=== PATIENT | female | born 1950 | race Caucasian/White ===

== ENCOUNTER 2018-03-31 07:12 | Inpatient (IN) | payer BC, OTHER ==
[~2018-03-31] VITALS: Ht 165.1 cm; Wt 74.1 kg
[2018-03-31] VITALS (9 sets, daily range): BP systolic 118–169; BP diastolic 58–68; PULSE 52–71; RESP 16; Ht 165.1 cm; Wt 74.1 kg
[2018-03-31] MEDS ORDERED: SOD CHLORIDE 0.9% 100 ML ONE (08:39)
[2018-03-31] MEDS ORDERED: IOHEXOL 100 ML ONE (08:39)
--- NOTE | 2018-03-31 08:51 | NUR ---
Procedure Ordered:CTA HEAD/NECK Reason for Exam Today:RT SIDE WEAKNESS Previous Exams: Allergies:NKDA Current Medications Taken: Glucophage ( ) Metformin ( ) Previous reaction to contrast media: Yes ( ) No (X ) : Yes ( ) No (X ) Asthma: Yes ( ) No ( X) Diabetes: Yes ( ) No ( X) Myeloma: Yes ( ) No (X ) Heart Disease: Yes ( ) No (X ) Cardiac Disease: Yes ( ) No ( X) Kidney Disease: Yes ( ) No ( X) Vascular Disease: Yes ( ) No (X ) Patient Teaching done: Yes ( ) No ( ) Admissions Supervisor Used: Yes ( ) No ( ) Name of Admissions Supervisor: Language Used: As part of the test requested by your doctor, contrast media may be injected into your vein while the x-rays are being taken. Occasionally, reactions from IV contrast may occur. The physician and staff of this hospital are trained to treat these reactions. Select the type of Contrast that will be given to patient: Isovue 300 ( ) Isovue 370 ( ) Visipaque ( ) Cystografin ( ) OMNIPAQUE 350 (x) Gastrographin ( ) Redi-cat ( ) Volumen ( ) Amount of contrast to be given: 90CC IV (X ) PO ( ) Date given:03/31/18 Lab Values: BUN: Creatinine:0.76 21 Reason why contrast cannot be given: Location of patient pre-procedure:[facility] Location of patient post procedure:[facility] PT TOLERATED IV CONTRAST INJECTION WELL
[2018-03-31] MEDS ORDERED: ACETAMINOPHEN 325 MG TAB PO PRN (09:00)
[2018-03-31] MEDS ORDERED: ASPIRIN 325 MG TAB PO ONE (09:00)
[2018-03-31] MEDS ORDERED: ONDANSETRON 4 MG INJ IV PRN ×2 (09:00→11:30)
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
[2018-03-31] MEDS ORDERED: PANT40TA4 PO (09:36)
[2018-03-31] MEDS ORDERED: HYDR25TA6 PO (09:37)
[2018-03-31] MEDS ORDERED: LOVA-54 PO (09:37)
[2018-03-31] MEDS ORDERED: AMLO5TAB4 PO (09:38)
[2018-03-31] MEDS ORDERED: CITA20TA8 PO (09:38)
[2018-03-31] MEDS ORDERED: CLON0.5T14 PO (09:39)
[2018-03-31] MEDS ORDERED: DOXY50TA PO (09:39)
[2018-03-31] MEDS ORDERED: HYDR-3980 PO (09:40)
[2018-03-31] MEDS ORDERED: clonAZEPAM 0.5 MG TAB PO PRN (11:00)
[2018-03-31] MEDS: ASPIRIN 81 MG TAB PO SCH (11:30)
[2018-03-31] MEDS ORDERED: NACL 0.9% 3 ML SYG IV SCH (11:30)
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
[2018-03-31] MEDS: HYDROCODONE/APAP (10/325) TAB PO PRN (14:51)
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
[2018-03-31] MEDS ORDERED: LORAZEPAM 1 MG TAB PO PRN (16:30)
--- NOTE | 2018-03-31 19:45 | NUR ---
EOSS: Pt arrived on unit around 1500, [id number] with mild forgetfulness, calm and cooperative, pain complaint of chronic head and neck ache /. Admission complete, pt refused pictures, skin intact. Pt seen by Pt and OT, pt passed john paul swallow with staff counselor. No neuro residuals observed and a NIHSS of 0. Pt pending EEG and MRI brain. VSS All other needs met and questions answered.
[2018-03-31] MEDS ORDERED: NON-FORMULARY/PATIENT OWN MED (Lovastatin* (Altoprev*) 40 MG) PO SCH (21:00)
[2018-03-31] MEDS ORDERED: LORAZEPAM 2 MG INJ IV ONE (22:00)
[2018-03-31] MEDS: DOXYCYCLINE 100 MG TAB PO SCH (22:43)
[2018-03-31] MEDS: ATORVASTATIN 10 MG TAB PO SCH (22:43)
[2018-04-01] VITALS (10 sets, daily range): BP systolic 106–145; BP diastolic 55–65; PULSE 55–120; RESP 16–18
--- NOTE | 2018-04-01 06:15 | EEG ---
EEG NOTE Report Details DATE OF TEST: 03/31/18 HISTORY: The patient is a 68-year-old F who presents with episodic limb shaking. This EEG is requested to evaluate for an epileptic disorder. SEDATION: None. CONDITIONS OF RECORDING: This EEG was recorded digitally on the [employer] machine, using the International 10-20 System of electrodes plus anterior temporals and Nz. STATES SAMPLED: Wakefulness and drowsiness. FINDINGS: During wakefulness, there is a 9 Hz posterior dominant rhythm, which attenuates normally with eye opening. There is a normal [id number] frequency-amplitude gradient. The remainder of the awake background is normal. Photic stimulation does not elicit any definite driving responses or epilep tiform discharges. Hyperventilation was not performed. The patient became drowsy but did not pass into sleep. No asymmetries, focal abnormalities or epileptiform discharges were seen. IMPRESSION: Normal electroencephalogram during wakefulness and drowsiness. COMMENT: A normal EEG does not of itself rule out an epileptic disorder, especially if sleep is not captured, but may decrease the probability of one depending on clinical context. SHERRY ALONSO Apr 01, 2018 06:15
[2018-04-01] MEDS: PANTOPRAZOLE (EC) 40 MG TAB PO SCH (06:40)
--- NOTE | 2018-04-01 06:57 | NUR ---
EOSS: Patient alert and oriented x4, no acute distress or discomfort during shift. Vitals stable. Patient had her MRI last night and arrived back to the unit stable. Hourly rounding done. Patient encouraged frequent repositioning. Patient ambulatory with assist to bathroom. Will continue to monitor.
[2018-04-01] MEDS: CITALOPRAM 20 MG TAB PO SCH (08:55)
[2018-04-01] MEDS: DOXYCYCLINE 100 MG TAB PO SCH ×2 (08:56→20:13)
[2018-04-01] MEDS: AMLODIPINE 5 MG TAB PO SCH (08:57)
[2018-04-01] MEDS: HYDROCHLOROTHIAZIDE 25 MG TAB PO SCH (08:58)
[2018-04-01] MEDS: ASPIRIN 81 MG TAB PO SCH (08:58)
--- NOTE | 2018-04-01 10:11 | NUR ---
Bedside swallow evaluation completed: Patient is a 68 y/o female with hx of HTN, migraines and other comorbidities who presented to the ER with transient R sided weakness. Stroke workup was completed and CTA H/N was "most notable for a small R ICA terminus/ proximal R ANNIE aneurysm. MRI of the brain was negative for acute processes. Patient was on a regular diet yesterday, but is now NPO. RN is unsure of why. Pt received breakfast tray this morning and reports she completed without difficulty. Does not report hx dysphagia. Agreeable to participation, alert and oriented in bed. Oral mech: Unremarkable. Face symmetrical, tongue at midline. Natural lower dentition with upper dentures. Trials: Thin liquids via cup and straw, regular solids. Tolerated all trials without s/s aspiration or oral residue. Oropharyngeal swallow is wfl. Tolerated mult. meds whole with thin liquids by straw without difficulty. No further dysphagia therapy warranted at this time. Educated pt and RN regarding recommendations. Verbalized comprehension. Recommendations: Cont. reg solids/ thin liquids Meds whole w/ thin No further ST at this time. Addendum: 04/01/18 at [address] Amended: Links added.
--- NOTE | 2018-04-01 10:27 | NUR ---
PT NOTE , RN CLEARED ,PATIENT AGREEABLE , PATIENT FOUND IN BED ,INSTRUCTED HER IN A/ROM BLE'S INCLUDING: AP,KNEE FLEX, EXT,SAQ , SLR AND LAQ , F/B PROGRESSIVE GAIT TR WITHOUT AD ,300' SBA , PATIENT HAS ABNORMAL GAIT PATTERN DUE TO LLE WEAKNESS , NOTE MILD LT DROP FOOT , DECREASED WEIGH BEARING ON LLE , PATIENT ABLE TO CLEAR UP HER LT FOOT/ANKLE WHILE GAIT TR WITHOUT AD, DESPITE ABNORMAL GAIT ,ABLE TO AMBULATE WITHOUT LOB , PATIENT'S FUNCTIONAL STANDING BALANCE IMPROVED NO TRUNK SWAY NOTED TODAY , A: PLAN TO RETURN HOME WITH SON ONCE CLEARED BY MD ,PATIENT UNWILLING TO USE FWW VS CANE . P:CONTINUE WITH POC , WITH EMPHASIS ON GAIT NORMALIZATION . ,
--- NOTE | 2018-04-01 10:38 | PN ---
Date/Time of Note Date/Time of Note DATE: 04/01/18 TIME: 10:37 Assessment/Plan VTE Prophylaxis Risk score (from Ns)>0 risk: 4 SCD applied (from Ns): Yes Pharmacological prophylaxis: NA/contraindicated Pharm contraindication: low risk/ambulating Lines/Catheters IV Catheter Type (from Nrs): [place] Assessment/Plan Hospital Course SUBJECTIVE: Lying in bed comfortably. No acute distress. Has been ablating without any difficulties. OBJECTIVE: Vital signs-see below PHYSICAL EXAM: Constitutional: Well-developed, adequately built, lying in bed comfortably. Psych: nl mood/affect, no complaints Head: atraumatic, normocephalic Eyes: nl conjunctiva, nl sclera ENMT: mucosa pink and moist, nl external ears & nose Neck: non-tender, supple Respiratory: clear to auscultation, normal air movement Cardiovascular: nl pulses, regular rate and rhythm Gastrointestinal: non-tender, soft, bowel sounds active in all 4 quadrants. Musculoskeletal/extremities: nl extremities to inspection, motor strength equal bilaterally, no focal deficit. Normal pulses,no cyanosis, no edema. Neurological: Alert oriented 3,nl speech, nl strength Skin: nl turgor ASSESSMENT/PLAN:68F with recurrent migraine attacks,HTN, depression/anxiety disorders presents with facial droop and right-sided weakness. 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 -According to patient's son, her headache/weakness attacks happens almost every day. I will discuss with neurologist for starting patient on migraine treatment if indicated. -Continue PT/OT. 2.Headache - Continue home norco prn pain 3.HTN - Continue home anti-hypertensives 4.Rosacea - Cont home doxycycline 5.GERD - Cont home PPI 6. Depression/anxiety disorders -Continue home medications DVT: None GI: PPI Disposition: Continue with rehabilitation. Discussed with patient's son. DC planning likely tomorrow when cleared from neurology. Patient was seen in collaboration with Dr. Shaw. Result Diagram: 04/01/18 0618 04/01/18 0618 Results 24hrs Laboratory Tests Test 04/01/18 06:18 White Blood Count 4.6 L Red Blood Count 4.82 Hemoglobin 14.7 Hematocrit 43.2 Mean Corpuscular Volume 89.6 Mean Corpuscular Hemoglobin 30.5 Mean Corpuscular Hemoglobin Concent 34.0 Red Cell Distribution Width 11.9 Platelet Count 195 Mean Platelet Volume 10.9 H Immature Granulocytes % 0.200 Neutrophils % 40.7 Lymphocytes % 44.0 Monocytes % 10.3 Eosinophils % 3.5 Basophils % 1.3 Nucleated Red Blood Cells % 0.0 Immature Granulocytes # 0.010 Neutrophils # 1.9 Lymphocytes # 2.0 Monocytes # 0.5 Eosinophils # 0.2 Basophils # 0.1 Nucleated Red Blood Cells # 0.0 Sodium Level 141 Potassium Level 4.2 Chloride Level 99 Carbon Dioxide Level 29 Anion Gap 13 Blood Urea Nitrogen 19 Creatinine 0.69 Est Glomerular Filtrat Rate mL/min > 60 Glucose Level 97 Hemoglobin A1c 5.6 Calcium Level 9.6 Phosphorus Level 5.1 H Magnesium Level 1.9 Total Bilirubin 0.2 Direct Bilirubin 0.00 Indirect Bilirubin 0.2 Aspartate Amino Transf (AST/SGOT) 22 Alanine Aminotransferase (ALT/SGPT) 22 Alkaline Phosphatase 92 Total Protein 7.0 Albumin 4.0 Globulin 3.00 Albumin/Globulin Ratio 1.33 Triglycerides Level 139 Cholesterol Level 161 LDL Cholesterol, Calculated 85 HDL Cholesterol 48 Cholesterol/HDL Ratio 3.3 Thyroid Stimulating Hormone (TSH) 1.630 Exam/Review of Systems Exam Vitals Vital Signs Date Temp Pulse Resp B/P (MAP) Pulse Ox O2 O2 Flow FiO2 Time Delivery Rate 04/01/18 120 08:37 04/01/18 97.9 18 121/56 93 Room Air 07:19 (77) 03/31/18 2 07:35 Intake and Output 03/31/18 03/31/18 04/01/18 1515:00 23:00 07:00 IntakeIntake Total 200 ml BalanceBalance 200 ml Results Results 24hrs Laboratory Tests Test 04/01/18 06:18 White Blood Count 4.6 L Red Blood Count 4.82 Hemoglobin 14.7 Hematocrit 43.2 Mean Corpuscular Volume 89.6 Mean Corpuscular Hemoglobin 30.5 Mean Corpuscular Hemoglobin Concent 34.0 Red Cell Distribution Width 11.9 Platelet Count 195 Mean Platelet Volume 10.9 H Immature Granulocytes % 0.200 Neutrophils % 40.7 Lymphocytes % 44.0 Monocytes % 10.3 Eosinophils % 3.5 Basophils % 1.3 Nucleated Red Blood Cells % 0.0 Immature Granulocytes # 0.010 Neutrophils # 1.9 Lymphocytes # 2.0 Monocytes # 0.5 Eosinophils # 0.2 Basophils # 0.1 Nucleated Red Blood Cells # 0.0 Sodium Level 141 Potassium Level 4.2 Chloride Level 99 Carbon Dioxide Level 29 Anion Gap 13 Blood Urea Nitrogen 19 Creatinine 0.69 Est Glomerular Filtrat Rate mL/min > 60 Glucose Level 97 Hemoglobin A1c 5.6 Calcium Level 9.6 Phosphorus Level 5.1 H Magnesium Level 1.9 Total Bilirubin 0.2 Direct Bilirubin 0.00 Indirect Bilirubin 0.2 Aspartate Amino Transf (AST/SGOT) 22 Alanine Aminotransferase (ALT/SGPT) 22 Alkaline Phosphatase 92 Total Protein 7.0 Albumin 4.0 Globulin 3.00 Albumin/Globulin Ratio 1.33 Triglycerides Level 139 Cholesterol Level 161 LDL Cholesterol, Calculated 85 HDL Cholesterol 48 Cholesterol/HDL Ratio 3.3 Thyroid Stimulating Hormone (TSH) 1.630 KARTHIKEYAN MESSER NP Apr 01, 2018 10:38
--- NOTE | 2018-04-01 14:02 | CONS ---
Assessment/Plan Assessment/Plan Hospital Course A: 68 yo F with hx of HTN, migraines and other comorbidities who presents with a transient R sided weakness ... for which neurology is consulted. Most clinically consistent with complex migraine. TIA is additionally considered. Seizures are unlikely. MRI brain is unrevealing. EEG is without epileptiform activity. 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 an incidental finding. P: Ok to defer additional neuroimaging for now Cont asa/statin for stroke prevention as medically able Medrol dose pack to be continued as opt for management of daily headache Start nortriptyline 10mg qhs for migraine ppx Other medical management and supportive care per primary Limit sedating medications where possible PT/OT/ST as tolerated Will follow clinically Result Diagram: 04/01/18 0618 04/01/18 0618 Results 24hrs Laboratory Tests Test 04/01/18 06:18 White Blood Count 4.6 L Red Blood Count 4.82 Hemoglobin 14.7 Hematocrit 43.2 Mean Corpuscular Volume 89.6 Mean Corpuscular Hemoglobin 30.5 Mean Corpuscular Hemoglobin Concent 34.0 Red Cell Distribution Width 11.9 Platelet Count 195 Mean Platelet Volume 10.9 H Immature Granulocytes % 0.200 Neutrophils % 40.7 Lymphocytes % 44.0 Monocytes % 10.3 Eosinophils % 3.5 Basophils % 1.3 Nucleated Red Blood Cells % 0.0 Immature Granulocytes # 0.010 Neutrophils # 1.9 Lymphocytes # 2.0 Monocytes # 0.5 Eosinophils # 0.2 Basophils # 0.1 Nucleated Red Blood Cells # 0.0 Sodium Level 141 Potassium Level 4.2 Chloride Level 99 Carbon Dioxide Level 29 Anion Gap 13 Blood Urea Nitrogen 19 Creatinine 0.69 Est Glomerular Filtrat Rate mL/min > 60 Glucose Level 97 Hemoglobin A1c 5.6 Calcium Level 9.6 Phosphorus Level 5.1 H Magnesium Level 1.9 Total Bilirubin 0.2 Direct Bilirubin 0.00 Indirect Bilirubin 0.2 Aspartate Amino Transf (AST/SGOT) 22 Alanine Aminotransferase (ALT/SGPT) 22 Alkaline Phosphatase 92 Total Protein 7.0 Albumin 4.0 Globulin 3.00 Albumin/Globulin Ratio 1.33 Triglycerides Level 139 Cholesterol Level 161 LDL Cholesterol, Calculated 85 HDL Cholesterol 48 Cholesterol/HDL Ratio 3.3 Thyroid Stimulating Hormone (TSH) 1.630 Consultation Date/Type/Reason Admit Date/Time Mar 31, 2018 at 08:45 Type of Consult Neurology Reason for Consultation R facial droop Requesting Provider: UBALDO LOONEY MD Date/Time of Note DATE: 04/01/18 TIME: 14:02 24 HR Interval Summary Free Text/Dictation Continues telemetry monitoring. Pt endorses moderate headache, though denies any focal sx such as her previous R facial/sided weakness, R arm jerking, vision changes. Exam Vital Signs Vitals Vital Signs Date Temp Pulse Resp B/P (MAP) Pulse Ox O2 O2 Flow FiO2 Time Delivery Rate 04/01/18 63 12:39 04/01/18 97.7 18 117/58 93 Room Air 11:30 (77) 03/31/18 2 07:35 Intake and Output 03/31/18 03/31/18 04/01/18 1515:00 23:00 07:00 IntakeIntake Total 200 ml BalanceBalance 200 ml Exam PE: Gen Appearance: No Apparent Distress HEENT: Normocephalic Cardiovascular: Regular rate Abdomen: Soft Extremities: Dry NE: The patient was awake,alert and oriented. Language was normal. Fund of knowledge was normal. Pupils were equal and reactive to light. There was no afferent pupillary defect. Visual lau were normal. Funduscopic examination was limited. Extra-ocular movements were full. Ptosis was absent. There was no nystagmus. Facial sensation was normal. Face was symmetric with normal strength. Hearing was intact. Palate movements were normal. Neck strength was normal. There was normal tongue bulk and speed of movement. Tone was normal. Muscle bulk was normal. I did not see fasciculations. Arms were mildly weak; legs and hip flexors were weak. Vibration sensation was normal. Temperature and pinprick sensation was normal. Rapid alternating movements were normal. There was no dysmetria. There was no intention tremor. Gait was deferred due to bedrest. Arm and leg reflexes were 2+ and symmetric. Neal's sign was absent. Plantar responses were flexor. ROXANN VU NP Apr 01, 2018 14:02 SHERRY ALONSO Apr 01, 2018 19:46
--- NOTE | 2018-04-01 15:07 | NUR ---
SW: AHCD & INITIAL PSYCHOSOCIAL ASSESSMENT SW met with this 68-year-old Faroese speaking female at bedside for AHCD & initial psychosocial assessment. Patient denies having an AHCD, and she verbally designated her son Néstor Lambert ([phone]) as surrogate spokesperson. Patient states she lives with her son and sons kids at [address] [place] [address]. Patient states she is disabled and receives SSI benefits. States that her son provides transportation, but states that she is overall independent at home with her ADL's. Patient denies having any questions/ concerns at this time. Drug And Alcohol Treatment Specialist remains available as needed throughout patient's treatment process.
[2018-04-01] MEDS ORDERED: METHYLPREDNISOLONE (MEDROL) DOSE PACK PO SCH ×2 (16:00)
[2018-04-01] MEDS ORDERED: METHYLPREDNISOLONE 4 MG TAB PO SCH (17:00)
--- NOTE | 2018-04-01 18:56 | NUR ---
Eoss No significant changes noted at this time, no sob or distress noted at this time, no c/o pain or discomfort noted. Pt amb w/ stable gait. Family was at the bedside, pt and family updated of plan of care. will endorse accordingly
[2018-04-01] MEDS: ATORVASTATIN 10 MG TAB PO SCH (20:16)
[2018-04-01] MEDS: NORTRIPTYLINE 10 MG CAP PO SCH (20:17)
[2018-04-01] MEDS: HYDROCODONE/APAP (10/325) TAB PO PRN (23:44)
[2018-04-02] VITALS (9 sets, daily range): BP systolic 123–143; BP diastolic 58–80; PULSE 65–88; RESP 17–20
[2018-04-02] MEDS: PANTOPRAZOLE (EC) 40 MG TAB PO SCH (06:36)
[2018-04-02] MEDS: METHYLPREDNISOLONE 4 MG TAB PO SCH ×2 (06:36→11:57)
--- NOTE | 2018-04-02 07:03 | NUR ---
EOSS: Patient alert and oriented x4, ambulatory with stable gait. No distress or discomfort noted at this time. All needs anticipated and met. Will endorse plan of care to oncoming shift.
[2018-04-02] MEDS: DOXYCYCLINE 100 MG TAB PO SCH ×2 (08:34→21:12)
[2018-04-02] MEDS: HYDROCHLOROTHIAZIDE 25 MG TAB PO SCH (08:34)
[2018-04-02] MEDS: ASPIRIN 81 MG TAB PO SCH (08:35)
[2018-04-02] MEDS: CITALOPRAM 20 MG TAB PO SCH (08:35)
[2018-04-02] MEDS: AMLODIPINE 5 MG TAB PO SCH (08:35)
[2018-04-02] MEDS: HYDROCODONE/APAP (10/325) TAB PO PRN (08:39)
--- NOTE | 2018-04-02 10:42 | PN ---
Date/Time of Note Date/Time of Note DATE: 04/02/18 TIME: 10:40 Assessment/Plan VTE Prophylaxis Risk score (from Ns)>0 risk: 4 SCD applied (from Ns): Yes Pharmacological prophylaxis: NA/contraindicated Pharm contraindication: low risk/ambulating Lines/Catheters IV [facility]from [facility] Saline Lock Assessment/Plan Hospital Course SUBJECTIVE: No further weakness, no headaches reported. OBJECTIVE: Vital signs-see below PHYSICAL EXAM: Constitutional: Well-developed, adequately built, lying in bed comfortably. Psych: nl mood/affect, no complaints Head: atraumatic, normocephalic Eyes: nl conjunctiva, nl sclera ENMT: mucosa pink and moist, nl external ears & nose Neck: non-tender, supple Respiratory: clear to auscultation, normal air movement Cardiovascular: nl pulses, regular rate and rhythm Gastrointestinal: non-tender, soft, bowel sounds active in all 4 quadrants. Musculoskeletal/extremities: nl extremities to inspection, motor strength equal bilaterally, no focal deficit. Normal pulses,no cyanosis, no edema. Neurological: Alert oriented 3,nl speech, nl strength Skin: nl turgor ASSESSMENT/PLAN:68F with recurrent migraine attacks,HTN, depression/anxiety disorders presents with facial droop and right-sided weakness. 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 -Symptoms improved. -Appreciate neurology recommendations: On Medrol Dosepak and nortriptyline for migraine prophylaxis. -Continue PT/OT. 2.HTN - Continue home anti-hypertensives 3.Rosacea - Cont home doxycycline 4.GERD - Cont home PPI 5. Depression/anxiety disorders -Continue home medications DVT: None GI: PPI Disposition: Continue with rehabilitation. Discussed with patient's son. Anticipate discharge in next 24 hours if no further symptoms. Patient was seen in collaboration with Dr. Blair. Result Diagram: 04/01/1818 04/01/1818 Exam/Review of Systems Exam Vitals Vital Signs Date Temp Pulse Resp B/P (MAP) Pulse Ox O2 O2 Flow FiO2 Time Delivery Rate 04/02/18 71 08:12 04/02/18 98.2 18 143/63 95 Room Air 07:25 (89) 03/31/18 2 07:35 Intake and Output 04/01/18 04/01/18 04/02/18 1515:00 23:00 07:00 IntakeIntake Total 800 ml BalanceBalance 800 ml Medications Medication Current Medications Amlodipine Besylate (Norvasc) 5 mg DAILY PO Last administered on 04/02/18 08:35; Admin Dose 5 MG; Start 04/01/18 at 09:00 Citalopram Hydrobromide (Celexa) 20 mg DAILY PO Last administered on 04/02/18 08:35; Admin Dose 20 MG; Start 04/01/18 at 09:00 Clonazepam (Klonopin) 0.5 mg TID PRN PO ANXIETY; Start 03/31/18 at 11:00 Hydrochlorothiazide (Hydrochlorothiazide) 25 mg DAILY PO Last administered on 04/02/18 08:34; Admin Dose 25 MG; Start 04/01/18 at 09:00 Acetaminophen/ Hydrocodone Bitart ([place] (10/325)) 1 tab Q6H PRN PO PAIN LEVEL 4-6 Last administered on 04/02/18 08:39; Admin Dose 1 TAB; Start 03/31/18 at 11:00 Pantoprazole (Protonix Tab) 40 mg AC BREAKFAST PO Last administered on 04/02/18 06:36; Admin Dose 40 MG; Start 04/01/18 at 07:25 Doxycycline Hyclate (Vibramycin) 50 mg BID PO Last administered on 04/02/18 08:34; Admin Dose 50 MG; Start 03/31/18 at 21:00 IV Flush (NS 3 ml) 3 ml PER PROTOCOL IV ; Start 03/31/18 at 11:30 Ondansetron HCl (Zofran Inj) 4 mg Q6H PRN IV NAUSEA; Start 03/31/18 at 11:30 Aspirin (Aspirin) 81 mg DAILY PO Last administered on 04/02/18 08:35; Admin Dose 81 MG; Start 03/31/18 at 11:30 Lorazepam (Ativan) 2 mg Q6H PRN PO anxiety Last administered on 03/31/18 17:02; Admin Dose 2 MG; Start 03/31/18 at 16:30 Atorvastatin Calcium (Lipitor) 10 mg DAILY@21 PO Last administered on 04/01/18 20:16; Admin Dose 10 MG; Start 03/31/18 at 21:00 Nortriptyline HCl (Aventyl) 10 mg HS PO Last administered on 04/01/18at 20:17; Admin Dose 10 MG; Start 04/01/18 at 21:00 Methylprednisolone (Medrol) 4 mg AC BREAKFAST PO Last administered on 04/02/18at 06:36; Admin Dose 4 MG; Start 04/02/18 at 07:25; Stop 04/06/18 at 07:26 Methylprednisolone (Medrol) 4 mg PC LUNCH PO ; Start 04/02/18 at 12:50; Stop 04/04/18 at 12:51 Methylprednisolone (Medrol) 4 mg PC DINNER PO ; Start 04/02/18 at 18:55; Stop 04/03/18 at 18:56 Methylprednisolone (Medrol) 8 mg HS PO ; Start 04/02/18 at 21:00; Stop 04/02/18 at 21:01 Methylprednisolone (Medrol) 4 mg HS PO ; Start 04/03/18 at 21:00; Stop 04/05/18 at 21:01 Methylprednisolone (Medrol Dose Pack) 1 ea STD DOSE PACK PO ; Start 04/01/18 at 16:00; Stop 04/06/18 at 08:00 KARTHIKEYAN MESSER NP Apr 02, 2018 10:42
--- NOTE | 2018-04-02 11:30 | NUR ---
PT NOTE , RN CLEARED , PATIENT AGREEABLE . PATIENT SEEN FOR PROGRESSIVE GAIT TR WITHOUT AD WITH EMPHASIS ON GAIT NORMALIZATION , PATIENT HAS MADE SIGNIFICANT PROGRESS, STAND ING BALANCE WITHOUT AD S: D NO LOB NOTED ALSO IMPROVED GAIT PATTERN TO HEEL-TOE PATTERN , GAIT TR WITH AD PERFORMED 400' GAIT IS RECIPROCAL, STEADY, STABLE WITH NO LOB , NO FURTHER SKILLED PT REQUIRES , RE-INSTRUCTED THE PATIENT IN SAFETY, FALL PRECAUTION AND A/ROM EXE'S BLE'S , PATIENT IS CLEARED TO AMBULATE WITH [facility] NOTIFIED . A: PLAN TO DC HOME WITH SON ONCE CLEARED BY MD , NO DME NEEDS . P: DC SKILLED PT
--- NOTE | 2018-04-02 12:11 | CONS ---
Assessment/Plan Assessment/Plan Hospital Course A: 68 yo F with hx of HTN, migraines and other comorbidities who presents with a transient R sided weakness ... for which neurology is consulted. Most clinically consistent with complex migraine. TIA is additionally considered. Seizures are unlikely. MRI brain is unrevealing. EEG is without epileptiform activity. 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 an incidental finding. P: Ok to defer additional neuroimaging for now Cont asa/statin for stroke prevention as medically able Medrol dose pack to be continued as opt for management of daily headache Cont nortriptyline 10mg qhs for migraine ppx Other medical management and supportive care per primary Limit sedating medications where possible PT/OT/ST as tolerated Will follow clinically Consultation Date/Type/Reason Admit Date/Time Mar 31, 2018 at 08:45 Type of Consult Neurology Reason for Consultation R facial droop Requesting Provider: UBALDO LOONEY MD Date/Time of Note DATE: 04/02/18 TIME: 12:11 24 HR Interval Summary Free Text/Dictation Continues telemetry monitoring. Pt states that her migraine is significantly improved and rates it a 3/10. Is without other complaints at this time. Exam Vital Signs Vitals Vital Signs Date Temp Pulse Resp B/P (MAP) Pulse Ox O2 O2 Flow FiO2 Time Delivery Rate 04/02/18 97.8 85 18 123/58 95 Room Air 11:15 (79) 03/31/18 2 07:35 Intake and Output 04/01/18 04/01/18 04/02/18 1515:00 23:00 07:00 IntakeIntake Total 800 ml BalanceBalance 800 ml Exam PE: Gen Appearance: No Apparent Distress HEENT: Normocephalic Cardiovascular: Regular rate Abdomen: Soft Extremities: Dry NE: The patient was awake,alert and oriented. Language was normal. Fund of knowledge was normal. Pupils were equal and reactive to light. There was no afferent pupillary defect. Visual lau were normal. Funduscopic examination was limited. Extra-ocular movements were full. Ptosis was absent. There was no nystagmus. Facial sensation was normal. Face was symmetric with normal strength. Hearing was intact. Palate movements were normal. Neck strength was normal. There was normal tongue bulk and speed of movement. Tone was normal. Muscle bulk was normal. I did not see fasciculations. Arms were mildly weak; legs and hip flexors were weak. Vibration sensation was normal. Temperature and pinprick sensation was normal. Rapid alternating movements were normal. There was no dysmetria. There was no intention tremor. Gait was deferred due to bedrest. Arm and leg reflexes were 2+ and symmetric. Neal's sign was absent. Plantar responses were flexor. ROXANN VU NP Apr 02, 2018 12:11
[2018-04-02] MEDS ORDERED: METHYLPREDNISOLONE 4 MG TAB PO SCH ×2 (18:55→21:00)
--- NOTE | 2018-04-02 19:29 | NUR ---
EOSS A&Ox4. Dx head pressure and dizziness. Iranian speaking. Independent. Ambulatory. D/C planning for tomorrow 04/03/18. Bed brakes on, side rails up, call light within reach. stable vital signs. Will endorse to shift leader.
[2018-04-02] MEDS: ATORVASTATIN 10 MG TAB PO SCH (21:12)
[2018-04-02] MEDS: NORTRIPTYLINE 10 MG CAP PO SCH (21:14)
[2018-04-03] VITALS (7 sets, daily range): BP systolic 117–125; BP diastolic 56–60; PULSE 53–89; RESP 16–18
[2018-04-03] MEDS: PANTOPRAZOLE (EC) 40 MG TAB PO SCH (06:35)
[2018-04-03] MEDS: METHYLPREDNISOLONE 4 MG TAB PO SCH ×2 (06:35→12:09)
--- NOTE | 2018-04-03 07:00 | NUR ---
EOSS: Pt asleep in bed. VS stable. Denies SOB. Discomfort mananged w/ nonpharmacologic interventions. Pt to be discharged home after being seen by Dr. Olivares's team in regards to the pt's new meds she is to be d/d'd home with. Rounded on hourly, aox4, steady, bed in locked and low position, bed rail x2, call light within reach; pt reminded to call when in need of assistance. Will endorse to dayshift RN.
[2018-04-03] MEDS: CITALOPRAM 20 MG TAB PO SCH (08:38)
[2018-04-03] MEDS: ASPIRIN 81 MG TAB PO SCH (08:39)
[2018-04-03] MEDS: AMLODIPINE 5 MG TAB PO SCH (08:39)
[2018-04-03] MEDS: HYDROCHLOROTHIAZIDE 25 MG TAB PO SCH (08:39)
[2018-04-03] MEDS: DOXYCYCLINE 100 MG TAB PO SCH (08:39)
--- NOTE | 2018-04-03 09:41 | PDOCDIS ---
Discharge Instructions CONDITION [id number] Patient Condition: [id number] Stable HOME CARE INSTRUCTIONS: [id number] Diet Instructions: [id number] Regular FOLLOW UP/APPOINTMENTS Follow-up Plan Follow-up with outpatient primary care physician and neurologist after discharge. KARTHIKEYAN MESSER NP Apr 03, 2018 09:41
[2018-04-03] MEDS ORDERED: METH4TAB PO (09:44)
[2018-04-03] MEDS ORDERED: ASPI-831 PO (09:44)
[2018-04-03] MEDS ORDERED: NORT10CA2 PO (09:44)
[2018-04-03] MEDS ORDERED: DOCU-144 PO (09:45)
[2018-04-03] MEDS ORDERED: POLY17PO6 PO (09:45)
--- NOTE | 2018-04-03 09:51 | DS ---
Date/Time of Note Date/Time of Note DATE: 04/03/18 TIME: 09:48 Discharge Summary Admission/Discharge Info Admit Date/Time Apr 02, 2018 at 10:39 Discharge Date/Time Discharge Diagnosis 1.Transient weakness/facial numbness/Headache, likely complex migraine hemip legia.Stable. 2.HTN 3.Rosacea 4.GERD 5. Depression/anxiety disorders Patient Condition: Stable Consults , neurology Procedures 03/31/2017. CTA neck IMPRESSION: 1. Mild to moderate plaque at the bilateral carotid bifurcations, with up to 20% stenosis of the proximal internal carotid arteries on both sides. 2. Normal patency of the bilateral cervical vertebral arteries. 3. 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 4. Mild calcification and minimal narrowing involving the left cavernous internal carotid artery. 5. Predominately origin of the left posterior cerebral artery, anatomic variant. 6. Left thyroid nodule, 3.0 cm. Ultrasound and/or tissue correlation is recom mended if this is not previously assessed. 7. Pulmonary emphysematous changes. Measurements of the cervical internal carotid artery stenosis were peformed according to NASCET criteria. 03/31/2018. CT brain without contrast IMPRESSION: 1. No evidence of intracranial masses hemorrhages or midline shift. 2. Mild nonspecific chronic microvascular ischemic disease. Addendum: was telephoned this results on 03/31/2018 at 0758 hours. 04/01/2018. Brain MRI with and without contrast. IMPRESSION: 1. No evidence of acute intracranial pathology. 2. Mild microvascular ischemic disease. Hospital Course 68F with recurrent migraine attacks,HTN, depression/anxiety disorders presents with facial droop and right-sided weakness. Patient was ruled out for stroke. She had neurology follow-up and her symptoms were thought to be secondary to complex migraine hemiplegia. Patient responded to Medrol and nortriptyline for prophylaxis. She did not have any further attacks. She was able to tolerate diet and activities. Patient was continued on home medication for underlying comorbidities. At this time, patient is cleared from a neurology standpoint for outpatient follow-up. Plan of care was discussed with patient's son Mr. Giles for the hospitalization. Approximately 60 m spent on coordinating the discharge on this patient. Patient was seen in collabortaion with . Home Meds Active Scripts Polyethylene Glycol* (Miralax*) 17 Gm Powd.pack, 17 GM PO DAILY for 7 Days, #7 PACKET Prov:MESSERHECTORKARTHIKEYAN V. RECRUITING ADMINISTRATOR 04/03/18 Docusate Sodium* (Colace*) 100 Mg Capsule, 100 MG PO BID, #60 CAP Prov:MESSER,KARTHIKEYAN V. RECRUITING ADMINISTRATOR 04/03/18 Methylprednisolone* (Medrol*) 4 Mg Tab, 4 MG PO TIDM A, #10 TAB Prov:MESSER,KARTHIKEYAN V. RECRUITING ADMINISTRATOR 04/03/18 Nortriptyline Hcl* (Nortriptyline Hcl*) 10 Mg Capsule, 10 MG PO HS, #30 CAP Prov:MESSER,KARTHIKEYAN V. RECRUITING ADMINISTRATOR 04/03/18 Aspirin (Aspirin) 81 Mg Chew, 81 MG PO DAILY, #30 TAB Prov:MESSER,KARTHIKEYAN V. RECRUITING ADMINISTRATOR 04/03/18 Reported Medications Hydrocodone/Acetaminophen ([place] 10-325 Tablet) 1 Each Tablet, 1 EACH PO Q6 PRN for PAIN, TAB 03/31/18 Clonazepam* (Clonazepam*) 0.5 Mg Tablet, 0.5 MG PO TID PRN for ANXIETY, TAB 03/31/18 Doxycycline Hyclate (Targadox) 50 Mg Tablet, 50 MG PO BID, TAB 03/31/18 Amlodipine Besylate* (Norvasc*) 5 Mg Tablet, 5 MG PO DAILY, TAB 03/31/18 Citalopram Hydrobromide* (Citalopram Hydrobromide*) 20 Mg Tablet, 20 MG PO DAILY, #30 TAB 03/31/18 Hydrochlorothiazide* (Hydrochlorothiazide*) 25 Mg Tab, 25 MG PO DAILY, #30 TAB 03/31/18 Lovastatin* (Altoprev*) 40 Mg Tab.sr.24h, 40 MG PO HS, TAB 03/31/18 Pantoprazole* (Pantoprazole*) 40 Mg Tablet.dr, 40 MG PO AC BREAKFAST, TAB 03/31/18 Discontinued Reported Medications Hydrochlorothiazide* (Hydrochlorothiazide*) 25 Mg Tab, 25 MG PO DAILY, #30 TAB 03/31/18 Follow-up Plan Follow-up with outpatient primary care physician and neurologist after discharge. Primary Care Provider Care Physician Eugenie Primary KARTHIKEYAN MESSER NP Apr 03, 2018 09:51
[2018-04-03] MEDS ORDERED: DOCUSATE SODIUM 100 MG CAP PO PRN (10:00)
[2018-04-03] MEDS ORDERED: POLYETHYLENE GLYCOL 17 GM PACKET NGT SCH (10:00)
--- NOTE | 2018-04-03 12:47 | CONS ---
Assessment/Plan Assessment/Plan Hospital Course A: 68 yo F with hx of HTN, migraines and other comorbidities who presents with a transient R sided weakness ... for which neurology is consulted. Most clinically consistent with complex migraine. TIA is additionally considered. Seizures are unlikely. MRI brain is unrevealing. EEG is without epileptiform activity. 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 an incidental finding. P: Ok to defer additional neuroimaging for now Cont asa/statin for stroke prevention as medically able Medrol dose pack til completed.. Continued nortriptyline 10mg qhs for migraine ppx Other medical management and supportive care per primary Limit sedating medications where possible PT/OT/ST as tolerated Neurologically cleared for d/c Consultation Date/Type/Reason Admit Date/Time Apr 02, 2018 at 10:39 Type of Consult Neurology Reason for Consultation face weakness; headache Requesting Provider: UBALDO LOONEY MD Date/Time of Note DATE: 04/03/18 TIME: 12:45 24 HR Interval Summary Free Text/Dictation Continues acute care. Notes toleration medrol and pamelor well...without adverse effects.. Headache is resolved.. Exam Vital Signs Vitals Vital Signs Date Temp Pulse Resp B/P (MAP) Pulse Ox O2 O2 Flow FiO2 Time Delivery Rate 04/03/18 98.5 74 18 122/60 95 Room Air 11:05 (80) 03/31/18 2 07:35 Intake and Output 04/02/18 04/02/18 04/03/18 1515:00 23:00 07:00 IntakeIntake Total 500 ml 980 ml BalanceBalance 500 ml 980 ml Exam PE: Gen Appearance: No Apparent Distress HEENT: Normocephalic Cardiovascular: Regular rate Abdomen: Soft Extremities: Dry NE: The patient was alert and oriented. Language was normal. Fund of knowledge was adequate. Pupils were equal and reactive to light. There was no afferent pupillary defect. Visual lau were normal. Funduscopic examination was limited. Extra-ocular movements were full. Ptosis was absent. There was no nystagmus. Facial sensation was normal. Face was symmetric with normal strength. Hearing was intact. Palate movements were normal. Neck strength was normal. There was normal tongue bulk and speed of movement. Tone was normal. Muscle bulk was normal. I did not see fasciculations. Arms and legs were symmetric. Vibration sensation was normal. Temperature and pinprick sensation was normal. Rapid alternating movements were normal. There was no dysmetria. There was no intention tremor. Gait was steady. Arm and leg reflexes were symmetric. Neal's sign was absent. Plantar responses were flexor. SHERRY ALONSO Apr 03, 2018 12:47
--- NOTE | 2018-04-03 15:08 | NUR ---
DISCHARGE Patient discharged home. environmental monitoring technician, peripheral IV and ID band removed. Discharge packet given and explained. Son, Néstor, at bedside. Disposition papers signed by patient. Sent with all belongings. Escorted with volunteer by wheelchair. Stable vital signs.
[2018-04-03] MEDS ORDERED: METHYLPREDNISOLONE 4 MG TAB PO SCH (21:00)
== END 2018-04-03 14:45 | disposition home or self-care (01) | DRG 103 ==
LOC: E/R 07:12 → INTOOBSV 08:45 → TEL 08:45 → OBSVTOIN 04-02 10:39
PROVIDERS: ADMIT Internal Medicine; ATTEND Internal Medicine
DX: G43.409 Hemiplegic migraine, not intractable, without status migrainosus (principal); Z72.0 Tobacco use; I10 Essential (primary) hypertension; L71.9 Rosacea, unspecified; F41.8 Other specified anxiety disorders
CPT/HCPCS: 36415; 70450; 70496; 70498; 70553; 71045; 80048; 80053; 80061; 80307; 81003; 82550; 82553; 82962; 83036; 83735; 84100; 84443; 84484; 85025; 85610; 85730; 92610; 93005; 95819; 97116; 97161; 97167; 99217; G0378; J2060; J7509; Q9967